=== PATIENT | male | born 1995 | race Caucasian/White ===

== ENCOUNTER 2018-09-13 14:09 | Inpatient (IN) | payer MEDICAID ==
[~2018-09-13] VITALS: Ht 185.4 cm; Wt 151.5 kg
[2018-09-13 19:10] VITALS: BP 149/77
[2018-09-13] MEDS ORDERED: ZOLPIDEM TARTRATE 10 MG TABLET PO PRN (19:30)
[2018-09-13 20:09] VITALS: BP 141/64
[2018-09-13] MEDS ORDERED: IBUPROFEN 400 MG TABLET PO PRN (20:30)
[2018-09-13] MEDS ORDERED: ACETAMINOPHEN 325 MG TABLET PO PRN (20:30)
[2018-09-13] MEDS ORDERED: MAG HYDROX/AL HYDROX/SIMETH ES 30 ML SUSPENSION UDCUP PO PRN (20:30)
[2018-09-13] MEDS ORDERED: MAGNESIUM HYDROXIDE SUSPENSION 30 ML UDCUP PO PRN (20:30)
[2018-09-13] MEDS ORDERED: PETROLATUM,WHITE 71 GM JELLY TP PRN (20:30)
[2018-09-13] MEDS: LORazepam 2 MG TABLET PO PRN (21:40)
[2018-09-14 06:45] VITALS: BP 138/91
[2018-09-14 07:58] LABS: BASOPHILS % (AUTO) 0.5 % (0.0-2.0); EOSINOPHILS % (AUTO) 2.2 % (1.0-6.0); HEMATOCRIT 44.7 % (41-53); HEMOGLOBIN 15.2 g/dL (13.5-17.5); LYMPHOCYTES % (AUTO) 30.4 % (22.0-44.0); MEAN CORPUSCULAR HEMOGLOBIN 29.3 pg (26.0-34.0); MEAN CORPUSCULAR VOLUME 86 fL (80-100); MONOCYTES # (AUTO) 0.6 K/uL (0.1-1.0); MONOCYTES % (AUTO) 9.6 % (2.0-9.0); NEUTROPHILS # (AUTO) 3.8 K/uL (1.8-7.7); NEUTROPHILS % (AUTO) 57.3 % (40.0-70.0); PLATELET COUNT (AUTO) 220 K/uL (150-450); RED BLOOD CELL COUNT(AUTO) 5.18 MIL/uL (4.50-5.90); RED CELL DISTRIBUTION WIDTH 13.6 % (11.5-14.5)
[2018-09-14 08:23] LABS: ALANINE AMINOTRANSFERASE 31 U/L (12-78); ALBUMIN 3.2 g/dL (3.4-5.0); ALKALINE PHOSPHATASE 47 U/L (46-116); ANION GAP 5 mmol/L (8-16); ASPARTATE AMINOTRANSFERASE 17 U/L (15-37); BILIRUBIN,TOTAL 0.5 mg/dL (0.1-1.0); CALCIUM, TOTAL 8.9 mg/dL (8.8-10.5); CARBON DIOXIDE 31 mmol/L (22-29); CHLORIDE 107 mmol/L (98-107); CHOL/HDL RATIO 2.8 (4.2-7.3); CHOLESTEROL 120 mg/dL (131-200); CREATININE 0.74 mg/dL (0.60-1.30); GLOMERULAR FILTR. RATE CALC > 60 mL/min (>60); GLUCOSE,RANDOM 83 mg/dL (70-110); HDL CHOLESTEROL 43 mg/dL (40-60); LDL CHOL (CALC.) 68 mg/dL (0-130); POTASSIUM 4.3 mmol/L (3.5-5.1); SODIUM SERUM 143 mmol/L (136-145); TOTAL PROTEIN, SERUM 6.5 g/dL (6.4-8.2); TRIGLYCERIDES 46 mg/dL (15-150); UREA NITROGEN, BLOOD 9 mg/dL (7-18)
[2018-09-14 08:25] VITALS: BP 127/77
[2018-09-14] MEDS: LORazepam 2 MG TABLET PO PRN (09:05)
[2018-09-14] MEDS: BuPROPion HCL XL 150 MG ER TABLET PO SCH (12:29)
[2018-09-14 16:00] VITALS: BP 138/86
[2018-09-15 06:56] VITALS: BP 132/88
[2018-09-15 08:19] VITALS: BP_SYST 150; BP_SYST 158; BP_DIAS 93; BP_DIAS 94
[2018-09-15] MEDS: LORazepam 2 MG TABLET PO PRN (08:54)
[2018-09-15] MEDS: BuPROPion HCL XL 150 MG ER TABLET PO SCH (08:54)
[2018-09-15 09:59] VITALS: BP 138/87
[2018-09-15 16:01] VITALS: BP 117/67
[2018-09-16 02:00] VITALS: BP 122/83
[2018-09-16] MEDS: BuPROPion HCL XL 150 MG ER TABLET PO SCH (08:30)
[2018-09-16 08:45] VITALS: BP_SYST 138; BP_SYST 144; BP_DIAS 102; BP_DIAS 97
[2018-09-16] MEDS ORDERED: BUPR-47 PO (11:25)
== END 2018-09-16 12:25 | disposition home or self-care (01) | DRG 751 ==
LOC: B2S 19:30
PROVIDERS: ADMIT Psychiatry & Neurology Psychiatry; ATTEND Psychiatry & Neurology Psychiatry
DX: F33.2 Major depressive disorder, recurrent severe without psychotic features (principal); R45.851 Suicidal ideations; F41.9 Anxiety disorder, unspecified; G47.00 Insomnia, unspecified; I10 Essential (primary) hypertension; Z91.5 Personal history of self-harm; Z79.899 Other long term (current) drug therapy; Z28.21 Immunization not carried out because of patient refusal
CPT/HCPCS: 90686